=== PATIENT | female | born 1975 | race Caucasian/White ===

== ENCOUNTER 2017-05-28 09:00 | Emergency (ER) | payer OTHER, SELFPAY ==
[2017-05-28 09:26] VITALS: RESP 16; TEMP 98.2; O2SAT 97
--- NOTE | 2017-05-28 10:35 | ED PDOC ---
Arrival/HPI - General Historian: Patient - History of Present Illness Time/Duration: 4-6 hours Symptom Course: Improving Quality: Pressure Severity Level: Severe (at onset (4am)) Context: Home - General Chief Complaint: Abdominal Pain Time Seen by Provider: 05/28/17 09:38 - History of Present Illness Narrative History of Present Illness (Text): 05/28/17 10:31 41F w/no sig PMH evaluated for abdominal pain x 1 day. Pt reports epigastric abdominal pain or "pressure" noted at 12am last night. Went to bed. Was awoken from sleep at 4am with severe epigastric abdominal pain w/radiation to low back/shoulders. Pain is Constant, fluctuates in intensity. No alleviating or aggravating factors identified. Admits to nausea, eating spicy foods, ate chicken nuggets for lunch yesterday, now w/anorexia. Denies F/C, ever having before, constipation, diarrhea, sick contacts, headache, other complaints. PMH: reflux PSH: Denies All: NKDA SH: admits to tobacco use #1-2 cigarettes daily, denies ETOH or illicit drug use FH: Sister had gallbladder disease PMD: Denies (Irene Valencia) Past Medical History - Provider Review Nursing Documentation Reviewed: Yes - Cardiac Hx Cardiac Disorders: Yes - Psychiatric Hx Substance Use: No Family/Social History - Physician Review Nursing Documentation Reviewed: Yes Family/Social History: No Known Family HX Smoking Status: Current Some Days Smoker Hx Alcohol Use: No Hx Substance Use: No Allergies/Home Meds Allergies/Adverse Reactions: Allergies No Known Allergies Allergy (Verified 05/28/17 09:22) Review of Systems - Review of Systems Constitutional: Fatigue. absent: Fevers Eyes: Normal. absent: Vision Changes ENT: Normal. absent: Sore Throat, Rhinorrhea Respiratory: Normal. absent: SOB Cardiovascular: Normal. absent: Chest Pain, Palpitations Gastrointestinal: Abdominal Pain, Nausea, Appetite Changes, Anorexia. absent: Normal, Constipation, Diarrhea, Vomiting, Hematochezia, Hematemesis Genitourinary Female: Normal. absent: Dysuria, Frequency, Hematuria Musculoskeletal: Back Pain. absent: Normal Skin: Normal. absent: Rash Neurological: Normal. absent: Headache Physical Exam Vital Signs Reviewed: Yes Temperature: Afebrile Blood Pressure: Normal Pulse: Regular Respiratory Rate: Normal Appearance: Positive for: Non-Toxic, Comfortable Pain Distress: None Mental Status: Positive for: Alert and Oriented X 3 - Systems Exam Head: Present: Atraumatic, Normocephalic Extroacular Muscles: Present: EOMI Conjunctiva: Present: Normal Mouth: Present: Moist Mucous Membranes Nose (External): Present: Atraumatic Neck: Present: Normal Range of Motion Respiratory/Chest: Present: Clear to Auscultation, Good Air Exchange. No: Respiratory Distress, Accessory Muscle Use Cardiovascular: Present: Regular Rate and Rhythm, Normal S1, S2. No: Murmurs Abdomen: Present: Tenderness (mild, epigastric), Normal Bowel Sounds. No: Distention, Peritoneal Signs, Rebound, Guarding, Hernias Back: Present: Normal Inspection. No: CVA Tenderness, Midline Tenderness, Paraspinal Tenderness Upper Extremity: Present: Normal Inspection. No: Cyanosis, Edema Lower Extremity: Present: Normal Inspection. No: Edema Neurological: Present: GCS=15, CN II-XII Intact, Speech Normal Skin: Present: Warm, Dry, Normal Color. No: Rashes Psychiatric: Present: Alert, Oriented x 3, Normal Insight, Normal Concentration Vital Signs Temp Pulse Resp BP Pulse Ox 05/28/17 12:58 70 16 104/63 05/28/17 09:23 98.2 F 85 16 114/81 97 Medical Decision Making ED Course and Treatment: 05/28/17 10:37 Pt seen/evaluated, will work up for possible biliary colic vs. reflux (Irene Valencia) epigastric pain/tenderness only per my exam. overall benign exam. pt appears well, resting quietly in no distress. susp gastritis vs biliary colic. disc w pt plan for rx, follow up, and rtr. (Bob Ch) - Lab Interpretations Lab Results: 05/28/17 10:38 05/28/17 10:38 Lab Results 05/28/17 10:38: Sodium 141, Potassium 4.3, Chloride 104, Carbon Dioxide 27, Anion Gap 14, BUN 10, Creatinine 0.6 L, Est GFR ( Amer) > 60, Est GFR ( Non-Af Amer) > 60, Random Glucose 109, Calcium 9.0, Total Bilirubin 0.4, AST 17 , ALT 32, Alkaline Phosphatase 46, Total Protein 7.5, Albumin 4.4, Globulin 3.1 , Albumin/Globulin Ratio 1.4, Lipase 45 05/28/17 10:38: WBC 5.8, RBC 4.95, Hgb 14.8, Hct 44.1, MCV 89.1, MCH 29.9, MCHC 33.6, RDW 12.9, Plt Count 252, MPV 10.0, Gran % 58.8, Lymph % (Auto) 33.0, [place] % (Auto) 3.4, Eos % (Auto) 4.5, Baso % (Auto) 0.3, Gran # 3.41, Lymph # 1.9, [place] # 0.2, Eos # 0.3, Baso # 0.02 - RAD Interpretation Radiology Orders: 05/28/17 09:53 GALL BLADDER [US] Stat - Medication Orders Current Medication Orders: Discontinued Medications Al Hydrox/Mg Hydrox/Simethicone (Maalox Plus 30 Ml) 30 ml PO STAT STA Stop: 05/28/17 11:49 Last Admin: 05/28/17 11:56 Dose: 30 ml Lidocaine HCl (Lidocaine 2% Viscous) 15 ml MM STAT STA Stop: 05/28/17 11:49 Last Admin: 05/28/17 11:56 Dose: 15 ml Disposition/Present on Arrival - Present on Arrival Any Indicators Present on Arrival: No History of DVT/PE: No History of Uncontrolled Diabetes: No Urinary Catheter: No History of Decub. Ulcer: No History Surgical Site Infection Following: None - Disposition Have Diagnosis and Disposition been Completed?: Yes Disposition Time: 12:55 Patient Plan: Discharge - Disposition Diagnosis: Gastritis, Cholelithiasis Disposition: HOME/ ROUTINE Condition: STABLE Discharge Instructions (ExitCare): Gastritis (ED), Helicobacter Pylori (ED), Biliary Colic (ED), Gallstones (ED), Diet for Ulcers and Gastritis (ED) Additional Instructions: Please take prescription as written. If you start to have Right upper abdominal pain, please make an appointment with the referring surgeon or come back to the ED for management. Prescriptions: Omeprazole 20 mg PO BID #60 tablet. Referrals: PCP,NO [Primary Care Provider] - Follow up with primary Jann Mcfarlane MD [Staff Provider] - Follow up with primary Forms: [employer] (Bulgarian), WORK NOTE
[2017-05-28 10:43] LABS: BASO # 0.02 K/mm3 (0.0-2.0); BASO % 0.3 % (0.0-3.0); EOS # 0.3 (0.0-0.7); EOS % 4.5 % (1.5-5.0); GRAN # 3.41 (1.4-6.5); GRAN % 58.8 % (50.0-68.0); HEMATOCRIT 44.1 % (36.0-48.0); LYMPH # 1.9 (1.2-3.4); MEAN CELL VOLUME 89.1 fl (80.0-105.0); MEAN CORPUSCULAR HEMOGLOBIN 29.9 pg (25.0-35.0); MEAN CORPUSCULAR HGB CONC 33.6 g/dl (31.0-37.0); MONO # 0.2 (0.1-0.6); MONO % 3.4 % (1.0-6.0); RED CELL DISTRIBUTION WIDTH 12.9 % (11.5-14.5); WHITE BLOOD COUNT 5.8 10^3/ul (4.5-11.0)
[2017-05-28 10:51] LABS: ALB/GLOB RATIO 1.4 (1.1-1.8); ALKALINE PHOSPHATASE 46 U/L (38-126); ALT/SGPT 32 U/L (7-56); AST/SGOT 17 U/L (14-36); BILIRUBIN,TOTAL 0.4 mg/dL (0.2-1.3); BLOOD UREA NITROGEN 10 mg/dL (7-21); CARBON DIOXIDE 27 mmol/L (21-33); CHLORIDE 104 mmol/L (98-107); GFR AFRICAN-AMERICAN > 60; GLUCOSE,RANDOM 109 mg/dL (70-110); LIPASE 45 U/L (23-300); POTASSIUM 4.3 mmol/L (3.6-5.0); SODIUM 141 mmol/L (132-148); TOTAL PROTEIN 7.5 g/dL (5.8-8.3)
[2017-05-28] MEDS ORDERED: Alum-Mag Hydrox-Simethicone Susp (30 mL) PO STA (11:48)
--- NOTE | 2017-05-28 12:52 | US ---
HISTORY: ab pain COMPARISON: None. TECHNIQUE: Sonographic evaluation of the right upper quadrant of the abdomen. FINDINGS: LIVER: Measures 19.5 cm in length. Normal echogenicity of the liver parenchyma. No mass. No intrahepatic bile duct dilatation. Smooth contour. Hepatopetal portal venous flow. GALLBLADDER: Cholelithiasis. No mural thickening or pericholecystic fluid. Negative sonographic Toure's sign. COMMON BILE DUCT: Measures 3 mm. No stones. No dilatation. PANCREAS: Unremarkable as visualized. No mass. No ductal dilatation. RIGHT KIDNEY: Measures 11.6 cm in length. Normal echogenicity. No calculus, mass, or hydronephrosis. AORTA: No aneurysmal dilatation. IVC: Unremarkable. OTHER FINDINGS: None . IMPRESSION: Cholelithiasis without sonographic evidence of cholecystitis. Mild hepatomegaly.
[2017-05-28 13:08] VITALS: BP 104/63; PULSE 70
== END 2017-05-28 12:58 | disposition home or self-care (01) ==
LOC: ED 09:00
DX: K80.20 Calculus of gallbladder without cholecystitis without obstruction (principal); K29.70 Gastritis, unspecified, without bleeding; F17.210 Nicotine dependence, cigarettes, uncomplicated